=== PATIENT | female | born 1945 | race African-American/Black ===

== ENCOUNTER 2019-02-07 13:30 | Emergency (ER) | payer MEDICARE, MEDICAID ==
[~2019-02-07] VITALS: Ht 154.9 cm; Wt 41.0 kg
[2019-02-07] MEDS ORDERED: DEXTROSE 50% WATER 50ML SYRINGE IV ONE ×2 (13:37→14:00)
[2019-02-07] MEDS ORDERED: SODIUM CHLORIDE 0.9% 1000ML BAG (SEPSIS BOLUS) IV ONE ×2 (14:00→16:30)
[2019-02-07] MEDS ORDERED: CEFTRIAXONE 1 G PREMIX 50 ML IV ONE (14:00)
[2019-02-07] MEDS ORDERED: AZITHROMYCIN 500 MG in DEXT 5% WATER 250 ML IV SCH (14:00)
[2019-02-07 14:13] LABS: HEMATOCRIT. 25.1 % (36.0-48.0); HEMOGLOBIN. 8.1 g/dL (12.0-16.0); MEAN CORPUSCULAR HEMOGLOBIN 26.4 pg (28.0-32.0); MEAN CORPUSCULAR VOLUME 81.8 fL (81.0-99.0); MEAN PLATELET VOLUME 8.4 fl (7.4-10.4); PLATELET 149 x1000/uL (130-400); RED BLOOD CELL COUNT 3.08 mill/uL (4.2-5.4); RED CELL DISTRIBUTION WIDTH 19.2 % (11.6-14.6)
[2019-02-07] MEDS ORDERED: ETOMIDATE 2MG/ML 10ML VIAL IV ONE (14:15)
[2019-02-07] MEDS ORDERED: SUCCINYLCHOLINE CHLORIDE 200MG/10ML IV ONE (14:15)
[2019-02-07 14:17] LABS: CHLORIDE 103 mEq/L (98-107)
[2019-02-07 14:18] LABS: INR 1.9; PROTHROMBIN TIME 18.7 sec (9.6-11.0)
[2019-02-07] MEDS ORDERED: EPINEPHRINE 0.1MG/ML (1:10,000) 10ML SYR ONE ×2 (16:11→16:16)
[2019-02-07] MEDS ORDERED: METRONIDAZOLE 500 MG PREMIX 100 ML IV SCH (16:30)
[2019-02-07] MEDS ORDERED: PROPOFOL 10MG/ML 100ML 100 ML IV SCH (16:30)
[2019-02-07] MEDS ORDERED: IPRATROPIUM/ALBUTEROL 0.5-3(2.5)MG/3ML NEB HHN PRN (16:30)
[2019-02-07] MEDS ORDERED: DOPAMINE 400MG/250ML PREMIX 250 ML IV ONE (16:41)
[2019-02-07 16:44] LABS: BG BASE EXCESS -7.4 mmol/L (-2.0-2.0); BG CARBOXYHEMOGLOBIN 1.3 % (0.5-1.5); BG DEOXYHEMOGLOBIN 14.4 % (0.0-5.0); BG HCO3 ACT 19.2 mmol/L (22.0-26.0); BG METHEMOGLOBIN 0.4 % (0.0-1.5); BG OXYGEN SATURATION 85.4 % (92.0-98.5); BG OXYHEMOGLOBIN 83.9 % (94.0-97.0); BG PCO2 45.5 mmHg (35.0-45.0); BG PH 7.244 (7.350-7.450); BG PO2 69.4 mmHg (75.0-100.0); BG SAMPLE SITE RIGHT BRACHIAL; BG TIDAL VOLUME(mL) 400 mL; BG TOTAL HEMOGLOBIN 5.6 g/dL (12.0-18.0); BG VENT MODE VENT - A/C; BG VENT RATE 16 set
[2019-02-07] MEDS ORDERED: DOPAMINE 800MG PREMIX (DOUBLE) 250 ML IV PRN (16:45)
[2019-02-07] MEDS ORDERED: ONDANSETRON HCL 4MG/2ML INJ IV PRN (16:45)
[2019-02-07] MEDS ORDERED: ACETAMINOPHEN 325MG TABLET PO PRN (16:45)
[2019-02-07] MEDS ORDERED: CEFEPIME 1,000 MG in DEXTROSE 5% WATER 50 ML IV SCH (16:45)
[2019-02-07] MEDS ORDERED: NOREPINEPHRINE 4MG/250ML PMX 250 ML IV ONE (16:45)
[2019-02-07 16:46] LABS: PLATELET ESTIMATE NORMAL
[2019-02-07] MEDS ORDERED: SODIUM BICARBONATE 8.4% 1 MEQ/ML 50ML SYR IV ONE (16:59)
[2019-02-07 17:06] VITALS: BP 93/20
[2019-02-07] MEDS ORDERED: IPRATROPIUM/ALBUTEROL 0.5-3(2.5)MG/3ML NEB HHN SCH (18:00)
[2019-02-07] MEDS ORDERED: CALCIUM CHLORIDE 1GM/10ML SYR IV ONE (18:08)
[2019-02-08] MEDS ORDERED: ASPIRIN 81MG TABLET PO SCH (09:00)
[2019-02-08] MEDS ORDERED: PANTOPRAZOLE SODIUM 40 MG/VIAL IV SCH (09:00)
== END 2019-02-07 18:24 | disposition expired ==
LOC: ER 14:04 → EDBEDREQ 14:17 → CANRESERV 17:43 → ENRESERV 17:43 → ER 18:24 → CANBEDREQ 18:38
DX: R65.21 Severe sepsis with septic shock (principal); J96.00 Acute respiratory failure, unspecified whether with hypoxia or hypercapnia; I21.4 Non-ST elevation (NSTEMI) myocardial infarction; I50.43 Acute on chronic combined systolic (congestive) and diastolic (congestive) heart failure; J18.9 Pneumonia, unspecified organism; I46.9 Cardiac arrest, cause unspecified; E83.51 Hypocalcemia; E86.0 Dehydration; D68.9 Coagulation defect, unspecified; E87.2 Acidosis; F03.90 Unspecified dementia, unspecified severity, without behavioral disturbance, psychotic disturbance, mood disturbance, and anxiety; M19.90 Unspecified osteoarthritis, unspecified site; E11.9 Type 2 diabetes mellitus without complications; N05.9 Unspecified nephritic syndrome with unspecified morphologic changes; R62.7 Adult failure to thrive; R79.89 Other specified abnormal findings of blood chemistry; E46 Unspecified protein-calorie malnutrition; D63.8 Anemia in other chronic diseases classified elsewhere; R53.81 Other malaise; I95.9 Hypotension, unspecified; Z74.01 Bed confinement status; Z68.1 Body mass index [BMI] 19.9 or less, adult
CPT/HCPCS: 31500; 36415; 36600; 71045; 74018; 80053; 80061; 82375; 82728; 82805; 82962; 83036; 83540; 83550; 83605; 83880; 84145; 84443; 84484; 85025; 85610; 87040; 92950; 93005; 96361; 96365; 96375; 99291; J0456; J0696; J1265; J3490; J7030; J7060